=== PATIENT | female | born 1945 | race Two or more races ===

== ENCOUNTER 2019-04-18 19:10 | Emergency (ER) | payer OTHER ==
[~2019-04-18] VITALS: Ht 157.5 cm; Wt 59.0 kg
[~2019-04-18 19:10] MED LIST: PROTONIX40 MG PO
== END 2019-04-18 21:33 | disposition home or self-care (01) ==
LOC: ER 19:10
DX: J11.1 Influenza due to unidentified influenza virus with other respiratory manifestations (principal)

== ENCOUNTER 2019-04-19 11:40 | Emergency (ER) | payer OTHER ==
[~2019-04-19] VITALS: Ht 160 cm; Wt 65.8 kg
== END 2019-04-19 23:10 | disposition home or self-care (01) ==
LOC: ER 11:40
DX: S00.83XA Contusion of other part of head, initial encounter (principal); E86.0 Dehydration; M25.512 Pain in left shoulder; M54.5 Low back pain; W18.39XA Other fall on same level, initial encounter; Y93.89 Activity, other specified; Y92.018 Other place in single-family (private) house as the place of occurrence of the external cause; Y99.8 Other external cause status

== ENCOUNTER 2023-04-16 10:05 | Outpatient (CLI) | payer OTHER | END 2023-04-16 10:11 | disposition home or self-care (01) | LOC: SONOGRAMA 10:05 | PROVIDERS: ATTEND Internal Medicine | DX: R10.2 Pelvic and perineal pain (principal) ==

== ENCOUNTER → 2023-04-16 11:29 | Outpatient (CLI) | payer OTHER ==
[2023-04-16 12:03] LABS: HEMATOCRIT 33.9 % (36.0-45.00); HEMOGLOBIN 11.2 g/dL (12.0-15.00); MEAN CELL VOLUME 85.5 fL (80.00-100.00); MEAN CORPUSCULAR HEMOGLOBIN 28.4 pg (27.00-32.0); MEAN CORPUSCULAR HGB CONC 33.2 g/dl (32.0-36.0); PLATELET COUNT 195 K/uL (150-450); RED BLOOD COUNT 3.96 M/uL (4.00-6.00); RED CELL DISTRIBUTION WIDTH 14.2 % (11.5-14.5)
[2023-04-16 12:44] LABS: ALBUMIN 4.2 gm/dL (3.4-5.0); BILIRUBIN TOTAL 0.35 mg/dL (0.3-1.2); CALCIUM 9.5 mg/dL (8.5-10.1); CHOL HDL RATIO 2.9 (0-5.0); CREATININE SERUM 0.97 mg/dL (0.55-1.02); GFR 55.68; GLOBULINA 3.1 G/DL (2.4-3.5); POTASSIUM 3.55 mEq/L (3.5-5.1); TOTAL PROTEIN 7.3 gm/dL (6.4-8.2); TSH 2.25 uIU/mL (0.358-3.74)
[2023-04-16 17:29] LABS: URINE APPEARANCE Clear; URINE BILIRRUBIN Negative (NEGATIVE); URINE BLOOD Negative; URINE COLOR Yellow; URINE GLUCOSE Negative (NEGATIVE); URINE LEUKOCYTE Small; URINE NITRATE Negative; URINE PROTEIN Negative (NEGATIVE); URINE UROBILINOGEN 0.2 E.U./dl
[2023-04-16 17:30] LABS: URINE BACTERIA 60.4 uL (0.0-1933); URINE EPITHELIAL CELLS 9.1 uL (0.0-38.8); URINE RBC 33.7 uL (0.0-20.8); URINE WBC 74.3 uL (0.0-23.2)
[2023-04-16 17:41] LABS: URINE CRYSTALS FEW /HPF
== END | disposition home or self-care (01) ==
LOC: LAB 11:29
PROVIDERS: ATTEND Internal Medicine
DX: E78.5 Hyperlipidemia, unspecified (principal); E11.9 Type 2 diabetes mellitus without complications; E03.9 Hypothyroidism, unspecified

== ENCOUNTER 2023-06-13 15:56 | Emergency (ER) | payer OTHER ==
[~2023-06-13] VITALS: Ht 160 cm; Wt 59.0 kg
== END 2023-06-13 21:00 | disposition home or self-care (01) ==
LOC: ER 15:56
DX: K59.00 Constipation, unspecified (principal)